=== PATIENT | male | born 1940 | race Caucasian/White ===

== ENCOUNTER 2019-10-03 14:03 | Inpatient (IN) | payer MEDICARE ==
[~2019-10-03] VITALS: Ht 182.9 cm; Wt 91.3 kg
[2019-10-03] MEDS ORDERED: MORPHINE 4 MG/ML 1ML VIAL/SYRINGE (J2270) IV ONE ×2 (14:30→15:15)
[2019-10-03] MEDS ORDERED: BOOSTRIX/ADACEL VACCINE (DIPHTH/PERTUSS/ACELL/TETANUS) 0.5ML SYR IM ONE (14:30)
[2019-10-03 15:11] LABS: BASO % 0.2 % (0.0-1.0); EOS % 0.6 % (0.0-3.0); HEMATOCRIT 40.1 % (42.0-52.0); HEMOGLOBIN 12.9 g/dl (13.5-17.5); LYMPH # 0.9 10^3/uL (1.5-5.0); LYMPH % 13.7 % (24.0-44.0); MEAN CORPUSCULAR HEMOGLOBIN 24.8 pg (27.0-33.0); MEAN CORPUSCULAR HGB CONC 32.2 g/dl (32.0-36.5); MONO # 0.3 10^3/uL (0.0-0.8); MONO % 4.9 % (0.0-5.0); NEUTROPHILS # 5.2 10^3/uL (1.5-8.5); NEUTROPHILS % 80.3 % (36.0-66.0); PLATELET COUNT, AUTOMATED 182 10^3/uL (150-450); RED BLOOD COUNT 5.21 10^6/uL (4.30-6.10); WHITE BLOOD COUNT 6.5 10^3/uL (4.0-10.0)
[2019-10-03 15:21] LABS: INR 1.01
[2019-10-03 15:22] LABS: PARTIAL THROMBOPLASTIN TIME 27.9 SECONDS (25.0-38.4)
[2019-10-03] MEDS ORDERED: FINA5TAB2 PO (15:32)
[2019-10-03] MEDS ORDERED: NS 1,000 ML IV SCH ×2 (15:36→16:15)
[2019-10-03] MEDS ORDERED: FLOM0.4C39 PO (15:48)
[2019-10-03] MEDS ORDERED: BIOT1TAB PO (15:48)
[2019-10-03 15:54] LABS: ALBUMIN 3.6 GM/DL (3.2-5.2); ALT/SGPT 23 U/L (12-78); BILIRUBIN,DIRECT 0.2 MG/DL (0.0-0.2); BILIRUBIN,TOTAL 0.6 MG/DL (0.2-1.0); BLOOD UREA NITROGEN 28 MG/DL (7-18); CALCIUM LEVEL 8.7 MG/DL (8.8-10.2); CARBON DIOXIDE LEVEL 25 MEQ/L (21-32); CHLORIDE LEVEL 108 MEQ/L (98-107); CK-MB VALUE MASS 6.5 NG/ML (<3.6); CPK CREATINE PHOSPHOKINASE 370 U/L (39-308); CREATININE FOR GFR 1.12 MG/DL (0.70-1.30); FREE T4 1.17 NG/DL (0.76-1.46); GLOMERULAR FILTRATION RATE > 60.0 (>42); GLUCOSE, FASTING 88 MG/DL (70-100); MB/CK RELATIVE INDEX 1.76 (< OR =4); POTASSIUM SERUM 4.4 MEQ/L (3.5-5.1); SODIUM LEVEL 141 MEQ/L (136-145); TOTAL PROTEIN 6.7 GM/DL (6.4-8.2); TROPONIN I < 0.02 NG/ML (< 0.10)
--- NOTE | 2019-10-03 16:38 | HPEPDOC ---
[facility] Medical History & Physical Date of Admission October 03, 2019 Date of Service: October 03, 2019 History and Physical CHIEF COMPLAINT: mechanical fall, left hip pain HISTORY OF PRESENT ILLNESS: 78 yo male from [place], [place] who travelled to [place] for a fishing trip. Patient had a mechanical fall, slipping on a rock. Denied any head trauma or syncope. Denied any previous history of falls. Denies any chest pain, shortness of breath, headaches, abdominal pain, N/V/D. Only PMHx of BPH, follows with his PCP annually. States he is extremely active, at least 45 minutes daily vigorous exercise. States he s mokes one cigar daily for as long as he can remember. He had a history of HTN, then resolved with lifestyle changes over four years ago. States he is aware of his pulmonary nodule, which has been monitored for several years. PAST MEDICAL HISTORY: #BPH #possible glucose intolerance #pulmonary nodule ALLERGIES: Please see below. REVIEW OF SYSTEMS: Negative except as per HPI HOME MEDICATIONS: Please see below. PHYSICAL EXAMINATION: VITAL SIGNS: See below LABORATORY DATA: See below. MICROBIOLOGY: Please see below. ASSESSMENT: 78 yo male with PMHx BPH, pulmonary nodule and possible glucose intolerance, presented for mechanical fall with left hip pain, admitted for left hip fracture. #left hip Fx - ortho c/s - medically optimized - NPO/IV fluids - pain control #BPH - continue home meds #pulmonary nodule - patient aware - obtains annual imaging - outpatient surveillance #nicotine abuse - counselling provided at bedside - not interested in nicotine replacement therapy #sinus chandni/RBBB - patient states is aware - present for several years #DVT prophylaxis - mechanical for now Dispo: Patient states he is extremely active, riding an exercise bike for 45 minutes daily, easily attaining greater than 4 METS. Denies ever experiencing chest pains or shortness of breath. ECG with no acute findings. Labs with no acute findings. He scores 0 using the Revised Cardiac Risk Index, indicating Class 1 risk, or 3.9% of serious adverse outcome. As such, patient is medically optimized for planned orthopedic surgical intervention. Vital Signs Vital Signs Date Time Temp Pulse Resp B/P (MAP) Pulse Ox O2 Delivery O2 Flow Rate FiO2 10/03/19 16:07 54 18 137/70 (92) 99 10/03/19 15:37 Room Air 10/03/19 14:28 97.7 Laboratory Data Labs 24H Laboratory Tests 2 10/03/19 14:59: Immature Granulocyte % (Auto) 0.3, Neutrophils (%) (Auto) 80.3H, Lymphocytes (%) (Auto) 13.7L, Monocytes (%) (Auto) 4.9, Eosinophils (%) (Auto) 0.6, Basophils (%) (Auto) 0.2, Neutrophils # (Auto) 5.2, Lymphocytes # (Auto) 0.9L, Monocytes # (Auto) 0.3, Eosinophils # (Auto) 0.0, Basophils # (Auto) 0.0, Nucleated Red Blood Cells % (auto) 0.0, Prothrombin Time 13.0, Prothromb Time International Ratio 1.01, Activated Partial Thromboplast Time 27.9, Anion Gap 8, Glomerular Filtration Rate > 60.0, Calcium Level 8.7L, Total Bilirubin 0.6, Direct Bilirubin 0.2, Aspartate Amino Transf (AST/SGOT) 27, Alanine Aminotransferase (ALT/SGPT) 23, Alkaline Phosphatase 69, Total Creatine Kinase 370H, Creatine Kinase MB 6.5H, Creatine Kinase MB Relative Index 1.76, Troponin I < 0.02, Total Protein 6.7, Albumin 3.6, Albumin/Globulin Ratio 1.2, Thyroid Stimulating Hormone (TSH) 1.600, Free Thyroxine 1.17 CBC/BMP Laboratory Tests 10/03/19 14:59 Microbiology Microbiology 10/03/19 Coronavirus COVID-19 PCR ([facility]), Received Pending Home Medications Scheduled Biotin (Biotin) 10 Mg Tablet, 10 MG PO DAILY Finasteride (Finasteride) 5 Mg Tablet, 5 MG PO DAILY Tamsulosin HCl (Flomax) 0.4 Mg Capsule, 0.4 MG PO DAILY Allergies Coded Allergies: No Known Allergies (Unverified , 10/03/19) A-FIB/CHADSVASC A-FIB History Current/History of A-Fib/PAF?: No MERARY TANNER MD October 03, 2019 16:38
[2019-10-03] MEDS ORDERED: MORPHINE 2 MG/ML 1ML VIAL (J2270) IV ONE (17:00)
[2019-10-03 17:15] VITALS: BP 120/74
[2019-10-03] MEDS ORDERED: MORPHINE 2 MG/ML 1ML VIAL (J2270) IV PRN ×2 (18:15→23:45)
[2019-10-03] MEDS ORDERED: LIDOCAINE 2% 100MG/5ML SDV (FOR ANES.) As Ordered ONE (19:10)
[2019-10-03] MEDS ORDERED: KETAMINE HCL 200 MG/20 ML VIAL As Ordered ONE (19:10)
[2019-10-03] MEDS ORDERED: ONDANSETRON 4MG/2ML VIAL As Ordered ONE (19:10)
[2019-10-03] MEDS ORDERED: fentaNYL 100 MCG/2 ML INJECTION (J3010) As Ordered ONE ×2 (19:10→20:55)
[2019-10-03] MEDS ORDERED: propofoL 200 MG/20 ML VIAL As Ordered ONE (19:10)
[2019-10-03] MEDS ORDERED: MIDAZOLAM INJ 2MG/2ML VIAL (J2250 PER 1MG) As Ordered ONE (19:10)
[2019-10-03] MEDS ORDERED: ceFAZolin 1GM VIAL (J0690 PER 500MG) As Ordered ONE (19:26)
[2019-10-03] MEDS ORDERED: EPINEPHrine INJ 1 MG/ML 1ML AMP As Ordered ONE (19:26)
[2019-10-03] MEDS ORDERED: ceFAZolin 2 GM/D5W 50 ML IV BAG (J0690 PER 500MG) As Ordered ONE ×2 (19:51→20:49)
[2019-10-03] MEDS ORDERED: ROCURONIUM BROMIDE 50 MG/5 ML VIAL As Ordered ONE (20:20)
[2019-10-03] MEDS ORDERED: dexameTHASONE 4 MG/ML 1ML VIAL (J1100 PER 1MG) As Ordered ONE (20:26)
[2019-10-03] MEDS ORDERED: SUCCINYLCHOLINE 100 MG/5 ML SYRINGE (J0330) As Ordered ONE (20:28)
[2019-10-03] MEDS ORDERED: PHENYLephrine HCL 500 MCG/5 ML (100MCG/ML) SYRINGE (J2370) As Ordered ONE (20:35)
[2019-10-03] MEDS ORDERED: TRANEXAMIC ACID 100 MG/ML 10ML VIAL As Ordered ONE (20:49)
[2019-10-03] MEDS ORDERED: ACETAMINOPHEN 1000MG 100ML IV BTL (OFIRMEV) (J0131 PER 10MG) As Ordered ONE (20:59)
[2019-10-03] MEDS ORDERED: SUGAMMADEX SODIUM 500 MG/5 ML VIAL (BRIDION) As Ordered ONE (21:03)
[2019-10-03] MEDS ORDERED: HYDROmorphone HCL 2 MG/ML 1ML VIAL (J1170) As Ordered ONE (21:40)
[2019-10-03] MEDS ORDERED: oxyCODONE 5MG TAB PO PRN (23:30)
[2019-10-03] MEDS ORDERED: LR 1,000 ML IV SCH ×2 (23:30→23:45)
[2019-10-03] MEDS ORDERED: fentaNYL 100 MCG/2 ML INJECTION (J3010) IV PRN (23:30)
[2019-10-03] MEDS ORDERED: ONDANSETRON 4MG/2ML VIAL IV PRN ×2 (23:30→23:45)
[2019-10-03] MEDS ORDERED: ACETAMINOPHEN TAB 650MG DOSE (2X325MG) PO PRN (23:45)
[2019-10-04] VITALS (11 sets, daily range): BP systolic 99–118; BP diastolic 52–71
[2019-10-04] MEDS: PERCOCET 5MG/325MG TAB PO PRN ×5 (02:35→22:08)
[2019-10-04 07:47] LABS: HEMATOCRIT 36.8 % (42.0-52.0); HEMOGLOBIN 11.9 g/dl (13.5-17.5); MEAN CORPUSCULAR HEMOGLOBIN 24.9 pg (27.0-33.0); MEAN CORPUSCULAR HGB CONC 32.3 g/dl (32.0-36.5); PLATELET COUNT, AUTOMATED 167 10^3/uL (150-450); RED BLOOD COUNT 4.78 10^6/uL (4.30-6.10); WHITE BLOOD COUNT 7.4 10^3/uL (4.0-10.0)
[2019-10-04 08:07] LABS: BLOOD UREA NITROGEN 20 MG/DL (7-18); CALCIUM LEVEL 8.4 MG/DL (8.8-10.2); CARBON DIOXIDE LEVEL 26 MEQ/L (21-32); CHLORIDE LEVEL 108 MEQ/L (98-107); CREATININE FOR GFR 1.04 MG/DL (0.70-1.30); GLOMERULAR FILTRATION RATE > 60.0 (>42); GLUCOSE, FASTING 140 MG/DL (70-100); POTASSIUM SERUM 4.3 MEQ/L (3.5-5.1); SODIUM LEVEL 142 MEQ/L (136-145)
--- NOTE | 2019-10-04 08:14 | REP ---
PELVIS AND LEFT HIP: AP view of the pelvis and AP and cross-table lateral views of the left hip are performed. There is a fracture of the left femoral neck with mild superior lateral displacement of the femur is noted. No other acute fracture or dislocation is seen. There are mild degenerative changes at the hip joints. There are mild degenerative changes of the lumbar spine. IMPRESSION: Left femoral neck fracture, which is mildly displaced. Electronically Signed by José Miguel Sow MD 10/04/2019 10:10 A
--- NOTE | 2019-10-04 08:15 | REP ---
CHEST, SINGLE VIEW: Single view of the chest is performed. I see no evidence of acute infiltrate but there may be a 2.5 cm nodule in the left upper lobe. Heart is not significantly enlarged. Mediastinal silhouette appears unremarkable. There are degenerative changes of the spine. IMPRESSION: Possible left upper lobe nodule, 2.5 cm in diameter. Recommend CT of the chest to further evaluate. Electronically Signed by José Miguel Sow MD 10/04/2019 10:10 A
[2019-10-04] MEDS: FINASTERIDE 5 MG TAB PO SCH (08:37)
[2019-10-04] MEDS: TAMSULOSIN 0.4 MG CAP PO SCH (08:38)
[2019-10-04] MEDS ORDERED: PREVNAR 13 VACCINE SYRINGE (CPT CODE:90670) IM ONE (09:00)
[2019-10-04] MEDS: MOM 30ML SUSPENSION UDC PO SCH ×3 (09:00→10:19)
[2019-10-04] MEDS: MIRALAX *UNIT DOSE* 17GM PACKET PO SCH (10:14)
[2019-10-04] MEDS: SENOKOT S TAB PO SCH ×2 (10:15→20:01)
--- NOTE | 2019-10-04 10:18 | REP ---
LEFT HIP: AP and cross-table lateral views of left hip are performed. There is placement of a metallic prosthesis in the proximal left femur, status post left femoral neck fracture. Osseous structures are intact and well aligned. Metallic skin beatris are seen laterally. Electronically Signed by José Miguel Sow MD 10/04/2019 11:16 A
--- NOTE | 2019-10-04 10:20 | REP ---
C-ARM VIEWS, LEFT HIP: Four C-arm views, left hip performed during placement of metallic prosthesis in the proximal left femur. Stem of the prosthesis is in the proximal left femur. 11 seconds fluoroscopy time utilized. Electronically Signed by José Miguel Sow MD 10/04/2019 11:16 A
--- NOTE | 2019-10-04 10:33 | IPNPDOC ---
Text Note Date of Service The patient was seen on 10/04/19. NOTE Subjective: Patient seen and examined at bedside. No medical complaints. In good spirits. Objective: General: NAD, lying comfortably in bed HEENT: NC/AT, EOMI ASSESSMENT: 78 yo male with PMHx BPH, pulmonary nodule and possible glucose intolerance, presented for mechanical fall with left hip pain, admitted for left hip fracture. #left hip Fx - POD #1 - follow up as per ortho - tolerating diet - pain control #BPH - continue home meds #pulmonary nodule - patient aware - obtains annual imaging - outpatient surveillance #nicotine abuse - counselling provided at bedside - not interested in nicotine replacement therapy #sinus chandni/RBBB - patient states is aware - present for several years #DVT prophylaxis - mechanical for now VS,Fishbone, I+O VS, Fishbone, I+O Laboratory Tests 10/03/19 14:59 10/04/19 07:23 Vital Signs Date Time Temp Pulse Resp B/P (MAP) Pulse Ox O2 Delivery O2 Flow Rate FiO2 10/04/19 07:30 18 10/04/19 05:10 98.1 50 106/60 (75) 97 Room Air 10/03/19 23:25 12 I&O- Last 24 Hours up to 6 AM 10/04/19 06:00 Intake Total 1935 ml Output Total 850 ml Balance 1085 ml MERARY TANNER MD October 04, 2019 10:33
[2019-10-04] MEDS: ceFAZolin SOD 2 GM in IV 1 EA IV SCH ×2 (11:22→17:51)
[2019-10-04] MEDS ORDERED: RIVAROXABAN 10 MG TAB (XARELTO) PO SCH (18:00)
[2019-10-04] MEDS: SLF 3 ML SYR IV SCH (18:46)
--- NOTE | 2019-10-04 19:45 | ECGEPIP ---
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
--- NOTE | 2019-10-04 20:15 | CR ---
DATE OF CONSULTATION: 10/03/2019 CHIEF COMPLAINT: Left femoral neck fracture. HISTORY OF PRESENT ILLNESS: 78-year-old man was fishing. Slipped getting out of the river. This was about 11 a.m. this morning. He has been nothing by mouth since that time. He fell directly on his left side with the inability to ambulate. I was consulted by the emergency room department physician at [facility]. He had no other pain, problems, preexisting hip pain or chest pain, shortness of breath or other injuries. PAST MEDICAL HISTORY: Includes BPH. Possible glucose intolerance. Pulmonary nodule. ALLERGIES: No known drug allergies. MEDICATIONS: - Biotin - finasteride - tamsulosin SOCIAL HISTORY: He is extremely active. He smokes a cigar everyday. He is traveling to [place] from [place] for a fishing trip. His 's name is Ariana. PHYSICAL EXAMINATION: Vital signs: Temperature 98.2. Blood pressure 120/74, pulse rate 63. Respiratory rate 20, 97% on room air. He is alert and oriented times three. Responds appropriately. He is in moderate discomfort to the left hip. No other pain or problems. Left hip is closed, held in slight flexion and external rotation. Normal sensation. Strong pedal pulses. He is able to wiggle his toes, dorsiflex and plantar flex his foot. Slightly diminished sensation through the foot but it is warm and strong dorsalis pedis and tibialis posterior pulses. Radiographs were obtained, AP and lateral left hip and pelvis and chest x-ray. Hip x-rays AP and lateral demonstrated a displaced femoral neck fracture. LABORATORIES: Reveals hemoglobin 12.9. Coagulation studies: PT 13, INR 1.01 and APTT 27.9. ASSESSMENT/PLAN: 78-year-old man has left femoral neck fracture. Discussed pros and cons, risks and benefits of nonsurgical versus surgical care. Surgery would involve a left hip hemiarthroplasty. Specific surgical risks include but are not limited to infection pain, stiffness, weakness, damage to blood vessels, nerves, neurovascular injury, damage to surrounding structures, component problems such as fracture instability or bone disassociation as well as wear on the acetabular side with a hemiarthroplasty calcar fracture, cement complications, Cement extravasation, blood clots, anesthetic complications, and other risks as well as need for further surgery. He wishes to go ahead, marked left lower extremity. He wishes to go ahead. Also consented for need for blood products and I explained the pros and cons and risks and benefits of that to him including but not limited to infection, fever, and allergic reaction. He will remain nothing by mouth. In addition due to the current coronavirus crisis there is unfortunately lack of rapid testing and as such we must proceed without rapid test as delayed testing would take 2-3 days. Plan to take precautions and treat the patient as if they were coronavirus positive.
[2019-10-05] VITALS: BP 96/52
[2019-10-05] MEDS: PERCOCET 5MG/325MG TAB PO PRN ×3 (04:06→15:38)
[2019-10-05] MEDS: ceFAZolin SOD 2 GM in IV 1 EA IV SCH (04:07)
[2019-10-05] MEDS: SLF 3 ML SYR IV SCH ×2 (05:08→14:00)
--- NOTE | 2019-10-05 07:45 | RO ---
DATE OF PROCEDURE: 10/03/2019 PREOPERATIVE DIAGNOSIS: Left femoral neck fracture. POSTOPERATIVE DIAGNOSIS: Left femoral neck fracture. PLANNED PROCEDURE: Left hip hemiarthroplasty. PROCEDURE PERFORMED: Left hip hemiarthroplasty (cemented). SURGEON: Dr. Teodoro Trinh [employer]: None. WO[employer]VING LATHE OPERATOR: Dr. Ragland ANESTHESIA: Failed spinal, converted to general anesthetic. OPERATIVE PREAMBLE: This 78-year-old man had a ground level fall. He sustained a displaced femoral neck fracture. We talked about the pros, cons, risks, and benefits of going ahead with surgery. I marked the left lower extremity and we proceeded to the operating theater. OPERATIVE REPORT: The patient was brought to the operating theater. They attempted to administer spinal anesthetic. This failed. They converted to a general anesthetic. He was placed on the operating table in a left lateral decubitus with the aid of a [place] hip positioner. Axillary roll was used. All bony prominences were padded appropriately. SCD used on the down leg. The limb was prepped and draped in the usual sterile fashion allowing over 3 minutes prep solution drying time. A preoperative time out was performed to confirm the site, the patient and surgery. I began by making a 6 inch incision centered over the lateral proximal aspect of the femur. I carried the dissection down through skin and subcutaneous tissue and achieved meticulous hemostasis. I incised the tensor fascia trina in the line of the skin incision. I sharply released the abductors off the greater trochanter. I made a T-shaped capsulotomy. I tagged each limb with a #1 Vicryl suture. I did excise a small leaflet of the capsule given that it was quite hypertrophic. I made my initial neck cut approximately one fingerbreadths above the level of the lesser trochanter based on preoperative templating and about 15 mm below the level of the fracture. I then inserted the corkscrew device and I removed the head from the acetabulum. The acetabulum cartilage was reasonable with good coverage and only grade 1 to 2 changes. The acetabulum was thoroughly irrigated. The head was sized to 54 mm. I then used the box osteotome followed by sequential canal entry devices and reamers and broaches to broach up to a size 7. This was trialed with a -3 mm size 7 broach with 56 mm head. This was stable and solid in all directions. No signs of levering out or impingement. Shuck test was normal. Full internal rotation with flexion and full external rotation and extension. No obvious instability. The trial components were removed. The femoral canal was thoroughly prepped using pulse lavage as well as the acetabulum using pulse lavage. Epinephrine soaked gauze was then inserted into the canal for bleeding hemostasis. A size 4 distal cement restrictor was placed after the appropriate hemostasis was achieved and the epinephrine soaked gauze removed. Cement was mixed and allowed to become only slightly firm in its consistency. I then cemented the canal. I used third-generation cement mixing techniques including vacuum mixing as well as pressurization in the canal. I inserted the size 7 [place] femoral stem in appropriate version. I allowed the cement to fully harden at least 14 minutes. I thoroughly cleaned the trunnion. The size -3 mm tapered spacer with 54 mm head was then impacted into place. It was reduced and again trialed and found to be stable in all directions with normal leg lengths and normal shuck test. Intraoperative x-ray was taken of the entire length of the femur as this was not done preoperatively. I also took radiographs AP of the femur to confirm the proper broach size which appeared appropriate. I asked for these to be saved onto the radiographic system. I again thoroughly irrigated. The capsule was closed with interrupted #1 Vicryl sutures. Abductors were repaired through bony tunnels with #1 Vicryl suture as well through the greater trochanter. Stratafix suture was used in a running locking fashion to repair the tensor fascia trina. Subcutaneous tissues was closed with interrupted #2-0 Vicryl sutures and the skin with beatris. The skin was cleaned with wet to dry dressing followed by application of an occlusive dressing and padded with ABD pads and cloth tape. The patient was extubated and kept in the room for 15 minutes after extubation due to Coronavirus concerns currently. He was transferred off the operating table and taken to the postanesthetic care unit in stable condition. All sponge, needle, and instrument counts were correct. No complications. Estimated blood loss 350 mL. PLAN: The patient will be weightbearing as tolerated. VTE prophylaxis with rivaroxaban 10 mg by mouth once daily for 35 days after surgery starting 24 hours after the case completion. He will follow up in the office in 2 weeks' time. We will obtain an AP x-ray in postoperative recovery.
[2019-10-05 08:25] LABS: BASO % 0.1 % (0.0-1.0); EOS # 0.1 10^3/uL (0.0-0.5); EOS % 1.1 % (0.0-3.0); HEMATOCRIT 32.8 % (42.0-52.0); HEMOGLOBIN 10.3 g/dl (13.5-17.5); LYMPH # 1.3 10^3/uL (1.5-5.0); LYMPH % 15.2 % (24.0-44.0); MEAN CORPUSCULAR HEMOGLOBIN 24.1 pg (27.0-33.0); MEAN CORPUSCULAR HGB CONC 31.4 g/dl (32.0-36.5); MEAN CORPUSCULAR VOLUME 76.8 fl (80.0-96.0); MONO # 0.7 10^3/uL (0.0-0.8); MONO % 8.3 % (0.0-5.0); NEUTROPHILS # 6.3 10^3/uL (1.5-8.5); NEUTROPHILS % 74.9 % (36.0-66.0); PLATELET COUNT, AUTOMATED 136 10^3/uL (150-450); RED BLOOD COUNT 4.27 10^6/uL (4.30-6.10); WHITE BLOOD COUNT 8.4 10^3/uL (4.0-10.0)
[2019-10-05 08:49] LABS: BLOOD UREA NITROGEN 19 MG/DL (7-18); CALCIUM LEVEL 8.1 MG/DL (8.8-10.2); CARBON DIOXIDE LEVEL 29 MEQ/L (21-32); CHLORIDE LEVEL 107 MEQ/L (98-107); CREATININE FOR GFR 1.07 MG/DL (0.70-1.30); GLOMERULAR FILTRATION RATE > 60.0 (>42); GLUCOSE, FASTING 99 MG/DL (70-100); SODIUM LEVEL 142 MEQ/L (136-145)
[2019-10-05] MEDS ORDERED: HYDROCORTISONE 1% CREAM 30 GM TOP PRN (09:00)
[2019-10-05] MEDS: MIRALAX *UNIT DOSE* 17GM PACKET PO SCH (09:00)
[2019-10-05] MEDS: SENOKOT S TAB PO SCH (09:02)
[2019-10-05] MEDS: TAMSULOSIN 0.4 MG CAP PO SCH (09:02)
[2019-10-05] MEDS: FINASTERIDE 5 MG TAB PO SCH (09:48)
[2019-10-05 12:00] VITALS: BP 124/60
[2019-10-05] MEDS ORDERED: XARE10TA PO (14:58)
--- NOTE | 2019-10-06 06:01 | DS.PDOC ---
Discharge Summary General Date of Admission October 03, 2019 at 16:39 Date of Discharge 10/05/19 Specialist/Consultants [facility], dr arguello Discharge Summary PROCEDURES PERFORMED DURING STAY: left hip hemiarthroplasty (cemented) ADMITTING DIAGNOSES: 1. left femoral neck fracture Secondary DIAGNOSES: 1. BPH 2. pulmonary nodule 3. sinus chandni/RBBB COMPLICATIONS/CHIEF COMPLAINT: Hip Fracture. Hospital Course: 78 yo male presented for mechanical fall with left hip pain. Im aging revealed left femoral neck fracture. Patient medically optimized for surgery, and under left hip negrita-arthroplasty (cemented). Patient was discharged to ARU for further rehab. Hospital stay otherwise unremarkable. COVID negative. DISCHARGE MEDICATIONS: Please see below. ALLERGIES: Please see below. PHYSICAL EXAMINATION ON DISCHARGE: VITAL SIGNS: Please see below. GENERAL: NAD HEENT: NC/AT, EOMI LABORATORY DATA: Please see below. ACTIVITY: [As tolerated]. DIET: regular DISPOSITION: 62 D/T Rehab Facility. DISCHARGE INSTRUCTIONS: 1. PCP on discharge, 3-5 days 2. orthopedics as directed 3. f/u pulmonary lung nodule as directed with PCP/pulmonology DISCHARGE CONDITION: [Stable]. TIME SPENT ON DISCHARGE: 35 minutes. Vital Signs/I&Os Vital Signs Date Time Temp Pulse Resp B/P (MAP) Pulse Ox O2 Delivery O2 Flow Rate FiO2 10/05/19 15:38 18 Room Air 10/05/19 12:00 99.5 70 124/60 (81) 94 10/03/19 23:25 12 I&O- Last 24 Hours up to 6 AM 10/06/19 06:00 Intake Total 240 ml Output Total 450 ml Balance -210 ml Laboratory Data Labs 24H Laboratory Tests 2 10/05/19 07:50: Immature Granulocyte % (Auto) 0.4, Neutrophils (%) (Auto) 74.9H, Lymphocytes (%) (Auto) 15.2L, Monocytes (%) (Auto) 8.3H, Eosinophils (%) (Auto) 1.1, Basophils (%) (Auto) 0.1, Neutrophils # (Auto) 6.3, Lymphocytes # (Auto) 1.3L, Monocytes # (Auto) 0.7, Eosinophils # (Auto) 0.1, Basophils # (Auto) 0.0, Nucleated Red Blood Cells % (auto) 0.0, Anion Gap 6L, Glomerular Filtration Rate > 60.0, Calcium Level 8.1L CBC/BMP Laboratory Tests 10/05/19 07:50 Microbiology Microbiology 10/03/19 Coronavirus COVID-19 PCR ([facility]) - Final, Complete Discharge Medications Scheduled Finasteride (Finasteride) 5 Mg Tablet, 5 MG PO DAILY, (Reported) Rivaroxaban (Xarelto) 10 Mg Tablet, 10 MG PO DAILY@18 Tamsulosin HCl (Flomax) 0.4 Mg Capsule, 0.4 MG PO DAILY, (Reported) Allergies Coded Allergies: No Known Allergies (Unverified , 10/03/19) MERARY TANNER MD Oct 06, 2019 06:01
--- NOTE | 2019-10-06 06:49 | IPN ---
DATE: 10/05/2019 CHIEF COMPLAINT: Postoperative day #2 left hip hemiarthroplasty. HISTORY OF PRESENT ILLNESS: 78-year-old man seen today on postoperative day #2. He is doing well. Mobilized to the washroom. He has a little bit of hip pain when he turns over in bed. Otherwise, no concerns. He had a slight temperature last night to 99.2, and he was given incentive spirometer. No other symptoms. No chest pain, shortness of breath. PHYSICAL EXAM: This is a well-appearing 78-year-old man. Alert and oriented times three. Incision is clean and dry. Bulky dressing was taken down. Normal sensation and motor function to the foot. Foot is warm and well perfused. ASSESSMENT/PLAN: This 78-year-old man likely has a fever due to postoperative day #1 atelectasis. We ordered for incentive spirometry. In addition to this, the hospitalist is actively managing his care. 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 We will try some hydrocortisone cream for this.
--- NOTE | 2019-10-06 09:41 | IPN ---
DATE: 10/04/2019 CHIEF COMPLAINT: Postoperative day #1 left hip cemented hemiarthroplasty. HISTORY OF PRESENT ILLNESS: This 78-year-old man underwent cemented hemiarthroplasty for his left hip femoral neck fracture last evening. This was done under general anesthetic. Feels like he is still a little bit groggy from the medications, but other than that he slept well. He is eating well. No nausea or vomiting. He feels like there is still a little bit of incisional tenderness but no pain like it was before. He is wondering how he is going to be able get home as he is from [place] and it is [place] 300[address] He is not a cycler especially on a stationary bike. PHYSICAL EXAMINATION: He is a well-appearing 78-year-old man. Vital signs are stable. He is alert and times three. He is pleasant and easy to interact with. Bulky dressing in situ. No strikethrough. Normal sensation . Motor and sensory reflex. Normal sensation and motor function through the foot. Foot is warm and well perfused. Good pedal pulses. Radiograph postoperatively was reviewed, AP, lateral and oblique of the left hip. . bone appears well positioned. There is an area of perhaps a calcified bony fragment or less likely cement just superior to the greater trochanter near the femoral neck on the AP radiograph. ASSESSMENT AND PLAN: A 78-year-old man who is postoperative day #1 from a left hip hemiarthroplasty for femoral neck fracture. Will mobilize, weightbearing as tolerated. Venous thromboembolism (VTE) prophylaxis with rivaroxaban 10 mg by mouth once daily for 35 days. He is being managed by the hospitalist team and to their care as well.
== END 2019-10-05 16:00 | DRG 470 ==
LOC: M ED 14:03 → M ED INP 16:39 → ENRESERV 16:49 → M 4MAIN 17:15
PROVIDERS: ADMIT Internal Medicine; ATTEND Internal Medicine
PROC: 0SRS0J9 Replacement of Left Hip Joint, Femoral Surface with Synthetic Substitute, Cemented, Open Approach (ICD-10-PCS; principal; 2019-10-03 19:01)
DX: S72.002A Fracture of unspecified part of neck of left femur, initial encounter for closed fracture (principal); J98.11 Atelectasis; W18.09XA Striking against other object with subsequent fall, initial encounter; Y93.19 Activity, other involving water and watercraft; Y92.828 Other wilderness area as the place of occurrence of the external cause; N40.0 Benign prostatic hyperplasia without lower urinary tract symptoms; R91.1 Solitary pulmonary nodule; I45.10 Unspecified right bundle-branch block; E74.39 Other disorders of intestinal carbohydrate absorption; F17.290 Nicotine dependence, other tobacco product, uncomplicated; Z79.899 Other long term (current) drug therapy

== ENCOUNTER 2019-10-05 13:30 | Inpatient (IN) | payer MEDICARE ==
[~2019-10-05] VITALS: Ht 182.9 cm; Wt 94.5 kg
[~2019-10-05 13:30] MED LIST: BIOT1TAB PO; FINA5TAB2 PO; FLOM0.4C39 PO
[2019-10-05] MEDS ORDERED: XARE10TA PO (14:58)
[2019-10-05 16:00] VITALS: BP 126/57
[2019-10-05] MEDS ORDERED: BISACODYL 10 MG SUPP PR PRN (16:00)
[2019-10-05] MEDS ORDERED: MOM 30ML SUSPENSION UDC PO PRN (16:00)
[2019-10-05] MEDS: REMEDY PHYTOPLEX Z-GUARD PASTE 113GM TUBE (FROM STOREROOM PRODUCT) TOP SCH ×2 (16:00→21:00)
[2019-10-05] MEDS: RIVAROXABAN 10 MG TAB (XARELTO) PO SCH (16:46)
[2019-10-05] MEDS: ACETAMINOPHEN 500 MG TAB PO SCH ×2 (16:49→21:25)
[2019-10-05 20:00] VITALS: BP 127/73
[2019-10-05] MEDS: SENNA 8.6 MG TAB (SENOKOT) PO SCH (21:26)
[2019-10-05] MEDS: DOCUSATE SODIUM 100 MG CAP PO SCH (21:26)
[2019-10-06] MEDS: ACETAMINOPHEN 500 MG TAB PO SCH ×3 (05:13→21:12)
[2019-10-06 06:00] VITALS: BP 116/62
[2019-10-06 06:56] LABS: BASO % 0.3 % (0.0-1.0); EOS # 0.1 10^3/uL (0.0-0.5); EOS % 1.7 % (0.0-3.0); HEMATOCRIT 33.9 % (42.0-52.0); HEMOGLOBIN 10.9 g/dl (13.5-17.5); LYMPH # 1.1 10^3/uL (1.5-5.0); LYMPH % 16.2 % (24.0-44.0); MEAN CORPUSCULAR HEMOGLOBIN 24.4 pg (27.0-33.0); MEAN CORPUSCULAR HGB CONC 32.2 g/dl (32.0-36.5); MONO # 0.5 10^3/uL (0.0-0.8); NEUTROPHILS # 4.9 10^3/uL (1.5-8.5); NEUTROPHILS % 73.3 % (36.0-66.0); PLATELET COUNT, AUTOMATED 159 10^3/uL (150-450); RED BLOOD COUNT 4.46 10^6/uL (4.30-6.10); WHITE BLOOD COUNT 6.7 10^3/uL (4.0-10.0)
[2019-10-06 07:19] LABS: ALBUMIN 2.9 GM/DL (3.2-5.2); ALT/SGPT 20 U/L (12-78); BILIRUBIN,TOTAL 0.8 MG/DL (0.2-1.0); BLOOD UREA NITROGEN 18 MG/DL (7-18); CALCIUM LEVEL 8.2 MG/DL (8.8-10.2); CARBON DIOXIDE LEVEL 26 MEQ/L (21-32); CHLORIDE LEVEL 107 MEQ/L (98-107); CREATININE FOR GFR 0.99 MG/DL (0.70-1.30); GLOMERULAR FILTRATION RATE > 60.0 (>42); GLUCOSE, FASTING 107 MG/DL (70-100); POTASSIUM SERUM 3.9 MEQ/L (3.5-5.1); SODIUM LEVEL 137 MEQ/L (136-145)
[2019-10-06] MEDS: DOCUSATE SODIUM 100 MG CAP PO SCH ×2 (07:40→20:27)
[2019-10-06] MEDS: TAMSULOSIN 0.4 MG CAP PO SCH (07:40)
[2019-10-06] MEDS: FINASTERIDE 5 MG TAB PO SCH (07:41)
[2019-10-06] MEDS: REMEDY PHYTOPLEX Z-GUARD PASTE 113GM TUBE (FROM STOREROOM PRODUCT) TOP SCH ×3 (07:44→20:28)
--- NOTE | 2019-10-06 10:53 | HPEPDOC ---
Shipsmith Note DATE OF ADMISSION: 10/05/19 DATE OF SERVICE: 10/06/19 TIME OF ADMISSION: Please refer to physician's admission order. SOURCE OF ADMISSION INFORMATION: [facility] record and patient CHIEF COMPLAINT: left hip fracture HISTORY OF PRESENT ILLNESS: 78M pmh BPH, smoker, sinus bradycardia who fell while on a fishing trip and presented to [facility] ED on 10-03-19 complaining of pain and difficulty walking. Hip X-rays showed, Left femoral neck fracture, which is mildly displaced. He was evaluated by orthopedics and underwent a left hip hemiarthroplasty on 10/03/19 without complication and was made WBAT. He developed mild post-op anemia and had difficulty with pain control. He was then evaluated by therapy, found to have deficits in mobility and ADLs and deemed medically appropriate for discharge to ARU on 10/06/19. REVIEW OF SYSTEMS: The following is a completed review of systems and has been reviewed. Review of systems otherwise unremarkable. PAIN: Patient self reports left hip pain EYES: No recent vision changes EARS, NOSE, & THROAT: +sinus congestion CARDIOVASCULAR: Denies chest pain or palpitations PULMONARY: Denies shortness of breath GASTROINTESTINAL: + constipation GENITOURINARY: denies dysuria MUSCULOSKELETAL: LLE weakness NEUROLOGICAL:denies paresthesias HEMATOLOGICAL: denies easy bruising SKIN: left hip incision PSYCHIATRIC: Unremarkable All other review of systems found to be negative. PAST MEDICAL HISTORY: as per HPI PAST SURGICAL HISTORY: as per HPI ALLERGIES: Please see below. MEDICATIONS: Please see below. SOCIAL HISTORY: +smoker, no etoh/illicit drugs DIET: regular PHYSICAL EXAMINATION: VITAL SIGNS: Please see below. GENERAL: Pleasant and cooperative. No acute distress. HEENT: PERRL. Extraocular movements intact. Clear conjunctiva CARDIOVASCULAR: Regular rate and rhythm. No murmurs, rubs, or gallops LUNGS: Clear to auscultation bilaterally. No wheezes. No rhonchi ABDOMEN: Soft, nontender, nondistended. Positive bowel sounds. Normal active bowel sounds NEUROLOGICAL: Alert and oriented times three. Cranial nerves II through XII grossly intact. Sensation grossly intact in all 4limbs EXTREMITIES: 5\5 strength bilateral upper extremities. 5\5 strength right lower extremity. 5/5 strength in left lower extremity ankle DF/EHL (limited due to recent surgery) SKIN: no sacral erythema, left hip incision c/d/i with scant sanguinous drainage LABORATORY DATA: Please see below. IMAGING: Imaging documentation personally reviewed by record FUNCTIONAL STATUS: Premorbid: Independent with all activities of daily life as well as mobility On Admission: Min-Max assist for functional transfers, able to ambulate 15 feet contact guard-min assist, total assist lower body dressing GOALS: Mod-I community distance with RW, stairs, functional transfers, dressing, bathing, toileting ASSESSMENT:78-year-old M with past medical history of BPH who presents status post fall with left femur fracture PLAN: 1. Rehab- PT/OT advance gait and ADLs, strengthen/stretch/maintain ROM all 4limbs 2. Cardiac: hx of sinus bradycardia, patient reports being very active, monitor 3. Resp: patient current smoker with CXR showing pulmonary nodule, he follows with his PCP and receive annual screening -Duonebs prn -encourage incentive spirometry, and monitor for infection -will add zyrtec, flonase, and nasal saline drops for sinus congestion 4. Ortho: s/p fall with left hip fracture and hemiarthroplasty, post-lat hip precautions, WBAT, ortho consulted 5. GI ppx: Protonix 6. DVT ppx: Xarelto and TEDs 7. Pain: Tylenol and oxycodone, ice 8. : hx of BPH c/u Proscar and Flomax, monitor PVRs 9. Heme: psot-op anemia due to blood loss, trend and consider transfusion if Hgb <8 10. Dispo: TBD POST ADMISSION PHYSICIAN EVALUATION: Medical and functional status: Description of medical status, medical assessment: As above. Rehabilitation diagnosis and current and prior cold morbid medical conditions as above. Risk of complications and plans to mitigate them as above. Description of functional status current status is as above. Prior status as above. Status compared to preadmission: There are no clinically significant differences between the patient's current status and the information described on the preadmission screening document. Treatment plan anticipated: Treatment plan is as described above. Required disciplines including physical therapy, occupational therapy, others as noted above. Intensity of services: 3 hours a day, 6 days a week. Special considerations: There are no specific special or safety considerations that would likely preclude immediate implementation of an intensive rehabilitation program or subsequently influence the plan of care. ATTESTATION: Considering all the information above, it is my best judgment that this patient requires intensive rehabilitation therapy as described above and an inpatient hospital environment due to the complexity of nursing, medical, and rehabilitation needs required by the patient. Furthermore, this patient can reasonably be expected to participate in an benefit from an inpatient rehabilitation stay with an interdisciplinary team approach to the delivery of rehabilitation care under the direction and supervision of rehabilitation physician. PROGNOSIS: good ESTIMATED LENGTH OF STAY:8-10 days. PROJECTED DISCHARGE DESTINATION: Home with family support and any durable medical equipment required to increase functional safety and mobility. TIME SPENT COUNSELING AND COORDINATING INITIAL CARE: Greater than 70 minutes. Vital Signs Vital Sign - Last 24 Hours 10/05/19 10/05/19 10/06/19 16:00 20:00 06:00 Temp 100.0 99.6 98.2 Pulse 72 76 70 Resp 18 17 18 B/P (MAP) 126/57 (80) 127/73 (91) 116/62 (80) Pulse Ox 100 96 92 O2 Delivery Room Air Room Air Room Air Laboratory Data CBC/BMP Laboratory Tests 10/06/19 06:30 Labs 24H Laboratory Tests 2 10/06/19 06:30: Immature Granulocyte % (Auto) 0.5, Neutrophils (%) (Auto) 73.3H, Lymphocytes (%) (Auto) 16.2L, Monocytes (%) (Auto) 8.0H, Eosinophils (%) (Auto) 1.7, Basophils (%) (Auto) 0.3, Neutrophils # (Auto) 4.9, Lymphocytes # (Auto) 1.1L, Monocytes # (Auto) 0.5, Eosinophils # (Auto) 0.1, Basophils # (Auto) 0.0, Nucleated Red Blood Cells % (auto) 0.0, Anion Gap 4L, Glomerular Filtration Rate > 60.0, Calcium Level 8.2L, Total Bilirubin 0.8, Aspartate Amino Transf (AST/SGOT) 26, A lanine Aminotransferase (ALT/SGPT) 20, Alkaline Phosphatase 62, Total Protein 6.0L, Albumin 2.9L, Albumin/Globulin Ratio 0.9 Home Medications Scheduled Finasteride (Finasteride) 5 Mg Tablet, 5 MG PO DAILY, (Reported) Rivaroxaban (Xarelto) 10 Mg Tablet, 10 MG PO DAILY@18 Tamsulosin HCl (Flomax) 0.4 Mg Capsule, 0.4 MG PO DAILY, (Reported) Allergies Coded Allergies: No Known Allergies (Unverified , 10/03/19) A-FIB/CHADSVASC A-FIB History Current/History of A-Fib/PAF?: No TYLER HOROWITZ MD Oct 06, 2019 10:53
[2019-10-06] MEDS: oxyCODONE 5MG TAB PO PRN ×2 (11:13→21:13)
[2019-10-06 14:21] VITALS: BP 145/76
[2019-10-06] MEDS: RIVAROXABAN 10 MG TAB (XARELTO) PO SCH (17:36)
[2019-10-06 20:00] VITALS: BP 135/72
[2019-10-06] MEDS: FLUTICASONE PROP 0.05% NASAL SPRAY 16 GM (FLONASE) NARES SCH (20:27)
[2019-10-06] MEDS: CETIRIZINE (ZyrTEC) 10 MG TAB PO SCH (20:27)
[2019-10-06] MEDS: SODIUM CHLORIDE NASAL 0.65% SPRAY BTL (OCEAN) SCH (20:27)
[2019-10-06] MEDS: SENNA 8.6 MG TAB (SENOKOT) PO SCH (20:27)
[2019-10-07] MEDS: ACETAMINOPHEN 500 MG TAB PO SCH ×3 (05:36→20:24)
[2019-10-07 06:00] VITALS: BP 131/71
[2019-10-07 08:11] LABS: BASO % 0.4 % (0.0-1.0); EOS # 0.2 10^3/uL (0.0-0.5); EOS % 4.3 % (0.0-3.0); HEMATOCRIT 29.3 % (42.0-52.0); HEMOGLOBIN 9.7 g/dl (13.5-17.5); LYMPH # 1.2 10^3/uL (1.5-5.0); LYMPH % 23.9 % (24.0-44.0); MEAN CORPUSCULAR HEMOGLOBIN 25.1 pg (27.0-33.0); MEAN CORPUSCULAR HGB CONC 33.1 g/dl (32.0-36.5); MEAN CORPUSCULAR VOLUME 75.9 fl (80.0-96.0); MONO # 0.5 10^3/uL (0.0-0.8); MONO % 9.2 % (0.0-5.0); NEUTROPHILS # 3.2 10^3/uL (1.5-8.5); PLATELET COUNT, AUTOMATED 150 10^3/uL (150-450); RED BLOOD COUNT 3.86 10^6/uL (4.30-6.10); WHITE BLOOD COUNT 5.1 10^3/uL (4.0-10.0)
[2019-10-07 08:30] LABS: BLOOD UREA NITROGEN 20 MG/DL (7-18); CALCIUM LEVEL 7.9 MG/DL (8.8-10.2); CARBON DIOXIDE LEVEL 28 MEQ/L (21-32); CHLORIDE LEVEL 108 MEQ/L (98-107); CREATININE FOR GFR 0.91 MG/DL (0.70-1.30); GLOMERULAR FILTRATION RATE > 60.0 (>42); GLUCOSE, FASTING 95 MG/DL (70-100); POTASSIUM SERUM 3.7 MEQ/L (3.5-5.1); SODIUM LEVEL 142 MEQ/L (136-145)
[2019-10-07] MEDS: TAMSULOSIN 0.4 MG CAP PO SCH (08:56)
[2019-10-07] MEDS: FINASTERIDE 5 MG TAB PO SCH (08:56)
[2019-10-07] MEDS: FLUTICASONE PROP 0.05% NASAL SPRAY 16 GM (FLONASE) NARES SCH ×2 (08:56→20:24)
[2019-10-07] MEDS: REMEDY PHYTOPLEX Z-GUARD PASTE 113GM TUBE (FROM STOREROOM PRODUCT) TOP SCH ×3 (08:56→20:28)
[2019-10-07] MEDS: DOCUSATE SODIUM 100 MG CAP PO SCH ×2 (08:56→20:24)
[2019-10-07] MEDS: SODIUM CHLORIDE NASAL 0.65% SPRAY BTL (OCEAN) SCH ×3 (08:56→20:24)
[2019-10-07] MEDS: oxyCODONE 5MG TAB PO PRN (11:03)
[2019-10-07 14:00] VITALS: BP 129/80
--- NOTE | 2019-10-07 14:11 | IPNPDOC ---
PM&R Progress Note DATE OF SERVICE: Oct 07, 2019 Application Lead Progress Note Subjective: Patient reporting his pain is relatively well controlled and that he will try to take pain meds prior to therapy. He is eager to go home, but wants to get the maximum benefit from inpatient therapy. He is still constipated. REVIEW OF SYSTEMS: The following is a completed review of systems and has been reviewed. Review of systems otherwise unremarkable. PAIN: Patient self reports left hip pain EYES: No recent vision changes EARS, NOSE, & THROAT: +sinus congestion (improving) CARDIOVASCULAR: Denies chest pain or palpitations PULMONARY: Denies shortness of breath GASTROINTESTINAL: + constipation GENITOURINARY: denies dysuria MUSCULOSKELETAL: LLE weakness NEUROLOGICAL:denies paresthesias HEMATOLOGICAL: denies easy bruising SKIN: left hip incision PSYCHIATRIC: Unremarkable All other review of systems found to be negative. PHYSICAL EXAMINATION: VITAL SIGNS: Please see below. GENERAL: Pleasant and cooperative. No acute distress. HEENT: PERRL. Extraocular movements intact. Clear conjunctiva CARDIOVASCULAR: Regular rate and rhythm. No murmurs, rubs, or gallops LUNGS: Clear to auscultation bilaterally. No wheezes. No rhonchi ABDOMEN: Soft, nontender, nondistended. Positive bowel sounds. Normal active bowel sounds NEUROLOGICAL: Alert and oriented times three. Cranial nerves II through XII grossly intact. Sensation grossly intact in all 4limbs EXTREMITIES: 5\5 strength bilateral upper extremities. 5\5 strength right lower extremity. 5/5 strength in left lower extremity ankle DF/EHL (limited due to recent surgery) SKIN: no sacral erythema, left hip incision c/d/i with scant sanguinous drainage ASSESSMENT:78-year-old M with past medical history of BPH who presents status post fall with left femur fracture PLAN: 1. Rehab- PT/OT advance gait and ADLs, strengthen/stretch/maintain ROM all 4limbs- ambulating with RW 2. Cardiac: hx of sinus bradycardia, patient reports being very active, monitor 3. Resp: patient current smoker with CXR showing pulmonary nodule, he follows with his PCP and receive annual screening -Duonebs prn -encourage incentive spirometry, and monitor for infection -c/u zyrtec, flonase, and nasal saline drops for sinus congestion 4. Ortho: s/p fall with left hip fracture and hemiarthroplasty, post-lat hip precautions, WBAT, ortho consulted 5. GI ppx: Protonix -lactulose and suppository ordered for constipation 6. DVT ppx: Xarelto and TEDs 7. Pain: Tylenol and oxycodone, ice 8. : hx of BPH c/u Proscar and Flomax, monitor PVRs 9. Heme: psot-op anemia due to blood loss, trend and consider transfusion if Hgb <8 10. Dispo:10/13/19 to home, progressing towards goals Allergies Coded Allergies: No Known Allergies (Unverified , 10/03/19) Vital Signs Vital Signs Date Time Temp Pulse Resp B/P (MAP) Pulse Ox O2 Delivery O2 Flow Rate FiO2 10/07/19 11:40 18 10/07/19 06:00 97.8 65 131/71 (91) 96 Room Air Laboratory Data CBC/BMP Laboratory Tests 10/07/19 06:57 Labs 24H Laboratory Tests 2 10/07/19 06:57: Immature Granulocyte % (Auto) 0.2, Neutrophils (%) (Auto) 62.0, Lymphocytes (%) (Auto) 23.9L, Monocytes (%) (Auto) 9.2H, Eosinophils (%) (Auto) 4.3H, Basophils (%) (Auto) 0.4, Neutrophils # (Auto) 3.2, Lymphocytes # (Auto) 1.2L, Monocytes # (Auto) 0.5, Eosinophils # (Auto) 0.2, Basophils # (Auto) 0.0, Nucleated Red Blood Cells % (auto) 0.0, Anion Gap 6L, Glomerular Filtration Rate > 60.0, Calcium Level 7.9L Current Medications Current Medications Current Medications Medications (Trade) Dose Ordered Sig/Nina Route PRN Reason Start Time Stop Time Status Last Admin Dose Admin Acetaminophen (Tylenol Tab) 1,000 mg Q8H PO 10/05/19 14:00 10/07/19 13:52 Bisacodyl (Dulcolax Suppository) 10 mg DAILYPRN PRN [place] CONSTIPATION 10/05/19 16:00 Cetirizine HCl (ZyrTEC) 10 mg QHS PO 10/06/19 21:00 10/06/19 20:27 Docusate Sodium (Colace) 100 mg BID PO 10/05/19 21:00 10/07/19 08:56 Finasteride (Proscar) 5 mg DAILY PO 10/06/19 09:00 10/07/19 08:56 Fluticasone Propionate (Flonase 0.05% Nasal [place]) 1 spray BID NARES 10/06/19 21:00 10/07/19 08:56 Magnesium Hydroxide (Milk Of Magnesia) 30 ml DAILYPRN PRN PO CONSTIPATION 10/05/19 16:00 Oxycodone HCl (Roxicodone, Oxyir) 5 mg Q4HP PRN PO PAIN 10/05/19 16:00 10/07/19 11:03 Rivaroxaban (Xarelto) 10 mg DAILY@1800 PO 10/05/19 18:00 10/06/19 17:36 Senna (Senokot) 1 tab QHS PO 10/05/19 21:00 10/06/19 20:27 Sodium Chloride ([place] Nasal [place]) 2 spray TID NA 10/06/19 21:00 10/07/19 08:56 Tamsulosin HCl (Flomax) 0.4 mg DAILY PO 10/06/19 09:00 10/07/19 08:56 TYLER HOROWITZ MD Oct 07, 2019 14:11
[2019-10-07] MEDS ORDERED: LACTULOSE 20 GM/30 ML SYRUP UD PO ONE (16:00)
[2019-10-07] MEDS: RIVAROXABAN 10 MG TAB (XARELTO) PO SCH (17:43)
[2019-10-07] MEDS ORDERED: BISACODYL 10 MG SUPP PR ONE (18:00)
[2019-10-07 20:00] VITALS: BP 109/61
[2019-10-07] MEDS: CETIRIZINE (ZyrTEC) 10 MG TAB PO SCH (20:24)
[2019-10-07] MEDS: SENNA 8.6 MG TAB (SENOKOT) PO SCH (20:24)
[2019-10-08] MEDS: oxyCODONE 5MG TAB PO PRN ×3 (04:06→22:04)
[2019-10-08 06:00] VITALS: BP 120/69
[2019-10-08] MEDS: ACETAMINOPHEN 500 MG TAB PO SCH ×3 (06:48→20:27)
[2019-10-08] MEDS: DOCUSATE SODIUM 100 MG CAP PO SCH ×2 (07:51→20:26)
[2019-10-08] MEDS: FINASTERIDE 5 MG TAB PO SCH (07:51)
[2019-10-08] MEDS: TAMSULOSIN 0.4 MG CAP PO SCH (07:51)
[2019-10-08] MEDS: FLUTICASONE PROP 0.05% NASAL SPRAY 16 GM (FLONASE) NARES SCH ×2 (07:51→20:27)
[2019-10-08] MEDS: SODIUM CHLORIDE NASAL 0.65% SPRAY BTL (OCEAN) SCH ×3 (07:52→20:27)
[2019-10-08] MEDS: REMEDY PHYTOPLEX Z-GUARD PASTE 113GM TUBE (FROM STOREROOM PRODUCT) TOP SCH ×3 (07:52→20:28)
[2019-10-08 14:00] VITALS: BP 116/58
--- NOTE | 2019-10-08 16:52 | IPNPDOC ---
PM&R Progress Note DATE OF SERVICE: Oct 08, 2019 Allergies Coded Allergies: No Known Allergies (Unverified , 10/03/19) Vital Signs Vital Signs Date Time Temp Pulse Resp B/P (MAP) Pulse Ox O2 Delivery O2 Flow Rate FiO2 10/08/19 14:00 97.0 67 19 116/58 (77) 97 Room Air Current Medications Current Medications Current Medications Medications (Trade) Dose Ordered Sig/Nina Route PRN Reason Start Time Stop Time Status Last Admin Dose Admin Acetaminophen (Tylenol Tab) 1,000 mg Q8H PO 10/05/19 14:00 10/08/19 13:33 Bisacodyl (Dulcolax Suppository) 10 mg DAILYPRN PRN [place] CONSTIPATION 10/05/19 16:00 Cetirizine HCl (ZyrTEC) 10 mg QHS PO 10/06/19 21:00 10/07/19 20:24 Docusate Sodium (Colace) 100 mg BID PO 10/05/19 21:00 10/08/19 07:51 Finasteride (Proscar) 5 mg DAILY PO 10/06/19 09:00 10/08/19 07:51 Fluticasone Propionate (Flonase 0.05% Nasal [place]) 1 spray BID NARES 10/06/19 21:00 10/08/19 07:51 Magnesium Hydroxide (Milk Of Magnesia) 30 ml DAILYPRN PRN PO CONSTIPATION 10/05/19 16:00 Oxycodone HCl (Roxicodone, Oxyir) 5 mg Q4HP PRN PO PAIN 10/05/19 16:00 10/08/19 04:06 Rivaroxaban (Xarelto) 10 mg DAILY@1800 PO 10/05/19 18:00 10/07/19 17:43 Senna (Senokot) 1 tab QHS PO 10/05/19 21:00 10/07/19 20:24 Sodium Chloride ([place] Nasal [place]) 2 spray TID NA 10/06/19 21:00 10/08/19 07:52 Tamsulosin HCl (Flomax) 0.4 mg DAILY PO 10/06/19 09:00 10/08/19 07:51 TYLER HOROWITZ MD Oct 08, 2019 16:52
[2019-10-08] MEDS: RIVAROXABAN 10 MG TAB (XARELTO) PO SCH (16:57)
[2019-10-08 20:00] VITALS: BP 114/57
[2019-10-08] MEDS: SENNA 8.6 MG TAB (SENOKOT) PO SCH (20:26)
[2019-10-08] MEDS: CETIRIZINE (ZyrTEC) 10 MG TAB PO SCH (20:27)
[2019-10-09 04:00] VITALS: BP 132/68
[2019-10-09] MEDS: oxyCODONE 5MG TAB PO PRN ×3 (04:43→21:06)
[2019-10-09] MEDS: ACETAMINOPHEN 500 MG TAB PO SCH ×3 (05:57→21:06)
[2019-10-09 07:07] LABS: BASO % 0.5 % (0.0-1.0); EOS # 0.2 10^3/uL (0.0-0.5); EOS % 5.7 % (0.0-3.0); HEMATOCRIT 29.2 % (42.0-52.0); HEMOGLOBIN 9.4 g/dl (13.5-17.5); LYMPH # 0.9 10^3/uL (1.5-5.0); LYMPH % 21.3 % (24.0-44.0); MEAN CORPUSCULAR HEMOGLOBIN 24.4 pg (27.0-33.0); MEAN CORPUSCULAR HGB CONC 32.2 g/dl (32.0-36.5); MEAN CORPUSCULAR VOLUME 75.8 fl (80.0-96.0); MONO # 0.5 10^3/uL (0.0-0.8); MONO % 11.1 % (0.0-5.0); NEUTROPHILS # 2.6 10^3/uL (1.5-8.5); NEUTROPHILS % 61.2 % (36.0-66.0); PLATELET COUNT, AUTOMATED 209 10^3/uL (150-450); RED BLOOD COUNT 3.85 10^6/uL (4.30-6.10); WHITE BLOOD COUNT 4.2 10^3/uL (4.0-10.0)
[2019-10-09 07:33] LABS: BLOOD UREA NITROGEN 22 MG/DL (7-18); CALCIUM LEVEL 8.3 MG/DL (8.8-10.2); CARBON DIOXIDE LEVEL 28 MEQ/L (21-32); CHLORIDE LEVEL 108 MEQ/L (98-107); CREATININE FOR GFR 0.91 MG/DL (0.70-1.30); GLOMERULAR FILTRATION RATE > 60.0 (>42); GLUCOSE, FASTING 92 MG/DL (70-100); POTASSIUM SERUM 4.2 MEQ/L (3.5-5.1); SODIUM LEVEL 142 MEQ/L (136-145)
[2019-10-09] MEDS: TAMSULOSIN 0.4 MG CAP PO SCH (07:52)
[2019-10-09] MEDS: DOCUSATE SODIUM 100 MG CAP PO SCH ×2 (07:52→21:05)
[2019-10-09] MEDS: FINASTERIDE 5 MG TAB PO SCH (07:53)
[2019-10-09] MEDS: REMEDY PHYTOPLEX Z-GUARD PASTE 113GM TUBE (FROM STOREROOM PRODUCT) TOP SCH ×3 (08:02→21:08)
[2019-10-09] MEDS: FLUTICASONE PROP 0.05% NASAL SPRAY 16 GM (FLONASE) NARES SCH ×2 (08:03→21:07)
[2019-10-09] MEDS: SODIUM CHLORIDE NASAL 0.65% SPRAY BTL (OCEAN) SCH ×3 (08:03→21:07)
[2019-10-09 14:00] VITALS: BP 124/58
--- NOTE | 2019-10-09 14:35 | IPN ---
DATE: 10/09/2019 CHIEF COMPLAINT: Postoperative day #6 left hip hemiarthroplasty. HISTORY OF PRESENT ILLNESS: This 78-year-old man is seen today on the rehabilitation [place]. He is completing his rehab. He is doing well. He plans to do another 1-1/2 hours throughout the day. PHYSICAL EXAMINATION: Vital signs stable. Dressing was changed. There was moderate strikethrough on the dressing. Artemas are in situ. No skin breakdown. No redness, swelling, or drainage. Normal sensation and motor function of the foot. ASSESSMENT/PLAN: This 78-year-old man post-op day #6 from left hip hemiarthroplasty. I have asked the nurse to change his dressing to another Optifoam occlusive dressing. Continue on his rehabilitation. I have no other concerns.
[2019-10-09] MEDS ORDERED: OXYC-517 PO (15:00)
[2019-10-09] MEDS ORDERED: FLOM0.4C39 PO (15:00)
[2019-10-09] MEDS ORDERED: XARE10TA PO (15:00)
[2019-10-09] MEDS ORDERED: FINA5TAB2 PO (15:00)
--- NOTE | 2019-10-09 15:03 | IPNPDOC ---
PM&R Progress Note Vascular Technologist Sonographer Progress Note doppler DATE OF ADMISSION: Oct 05, 2019 at 16:00 INPATIENT REHABILITATION ADMISSION DAY: # SUBJECTIVE: Patient is a -year-old with . ALLERGIES: See Below MEDICATIONS: Reviewed, see below. OBJECTIVE: VITAL SIGNS: Please see below. PHYSICAL EXAMINATION: GENERAL: [Cachectic, well developed, sitting up in bed, no acute distress]. HEENT: [Normocephalic, atraumatic]. [No facial droop]. [Poor dentition, missing teeth. PERRL, EOMI]. CARDIOVASCULAR: [S1, S2, irregular rate]. [No lower limb edema or calf tenderness]. LUNGS: [Decreased breath sounds, coarse throughout]. ABDOMEN: [Soft, nontender, nondistended. Normoactive bowel sounds throughout]. MUSCULOSKELETAL: MMT: /5 strength proximally bilateral shoulder abduction, forward flexion and bilateral hip flexion. /5 strength bilateral elbow flexion, knee flexion, /5 bilateral elbow extension and knee extension. /5 wool dyer, dorsiflexion, plantar flexion. NEUROLOGICAL: [Alert and oriented times three]. [Answers all question appropriately]. SKIN: . LABORATORY DATA: Reviewed. Please see below. MICROBIOLOGY: Please see below. IMAGING: ASSESSMENT AND PLAN: 1. . 2. . 3. . TIME SPENT: Chart Review, examination and documentation minutes. Allergies Coded Allergies: No Known Allergies (Unverified , 10/03/19) Vital Signs Vital Signs Date Time Temp Pulse Resp B/P (MAP) Pulse Ox O2 Delivery O2 Flow Rate FiO2 10/09/19 14:00 97.7 61 18 124/58 (80) 97 Room Air Laboratory Data CBC/BMP Laboratory Tests 10/09/19 06:15 Labs 24H Laboratory Tests 2 10/09/19 06:15: Immature Granulocyte % (Auto) 0.2, Neutrophils (%) (Auto) 61.2, Lymphocytes (%) (Auto) 21.3L, Monocytes (%) (Auto) 11.1H, Eosinophils (%) (Auto) 5.7H, Basophils (%) (Auto) 0.5, Neutrophils # (Auto) 2.6, Lymphocytes # (Auto) 0.9L, Monocytes # (Auto) 0.5, Eosinophils # (Auto) 0.2, Basophils # (Auto) 0.0, Nucleated Red Blood Cells % (auto) 0.0, Anion Gap 6L, Glomerular Filtration Rate > 60.0, Calcium Level 8.3L Current Medications Current Medications Current Medications Medications (Trade) Dose Ordered Sig/Nina Route PRN Reason Start Time Stop Time Status Last Admin Dose Admin Acetaminophen (Tylenol Tab) 1,000 mg Q8H PO 10/05/19 14:00 10/09/19 07:53 Bisacodyl (Dulcolax Suppository) 10 mg DAILYPRN PRN [place] CONSTIPATION 10/05/19 16:00 Cetirizine HCl (ZyrTEC) 10 mg QHS PO 10/06/19 21:00 10/08/19 20:27 Docusate Sodium (Colace) 100 mg BID PO 10/05/19 21:00 10/09/19 07:52 Finasteride (Proscar) 5 mg DAILY PO 10/06/19 09:00 10/09/19 07:53 Fluticasone Propionate (Flonase 0.05% Nasal [place]) 1 spray BID NARES 10/06/19 21:00 10/09/19 08:03 Magnesium Hydroxide (Milk Of Magnesia) 30 ml DAILYPRN PRN PO CONSTIPATION 10/05/19 16:00 Oxycodone HCl (Roxicodone, Oxyir) 5 mg Q4HP PRN PO PAIN 10/05/19 16:00 10/09/19 04:43 Rivaroxaban (Xarelto) 10 mg DAILY@1800 PO 10/05/19 18:00 10/08/19 16:57 Senna (Senokot) 1 tab QHS PO 10/05/19 21:00 10/08/19 20:26 Sodium Chloride ([place] Nasal [place]) 2 spray TID NA 10/06/19 21:00 10/09/19 08:03 Tamsulosin HCl (Flomax) 0.4 mg DAILY PO 10/06/19 09:00 10/09/19 07:52 TYLER HOROWITZ MD Oct 09, 2019 15:03
--- NOTE | 2019-10-09 17:00 | REP ---
Bilateral lower extremity Duplex Doppler venous ultrasound: Real time compression and duplex Doppler interrogation of the bilateral lower extremity deep venous system is performed. Bilaterally, the common femoral, superficial femoral and popliteal veins are fully compressible with transducer pressure and demonstrate normal spontaneous and phasic flow, without evidence of deep venous thrombosis. Impression: No evidence of deep venous thrombosis of the bilateral lower extremity femoral popliteal venous system. Electronically Signed by José Miguel Sow MD 10/09/2019 04:52 P
[2019-10-09] MEDS: RIVAROXABAN 10 MG TAB (XARELTO) PO SCH (18:23)
[2019-10-09 20:55] VITALS: BP 128/60
[2019-10-09] MEDS: SENNA 8.6 MG TAB (SENOKOT) PO SCH (21:05)
[2019-10-09] MEDS: CETIRIZINE (ZyrTEC) 10 MG TAB PO SCH (21:06)
[2019-10-10 06:30] VITALS: BP 141/76
[2019-10-10] MEDS: ACETAMINOPHEN 500 MG TAB PO SCH ×3 (06:36→20:45)
[2019-10-10] MEDS: FINASTERIDE 5 MG TAB PO SCH (07:41)
[2019-10-10] MEDS: TAMSULOSIN 0.4 MG CAP PO SCH (07:41)
[2019-10-10] MEDS: REMEDY PHYTOPLEX Z-GUARD PASTE 113GM TUBE (FROM STOREROOM PRODUCT) TOP SCH ×3 (07:42→20:49)
[2019-10-10] MEDS: FLUTICASONE PROP 0.05% NASAL SPRAY 16 GM (FLONASE) NARES SCH ×2 (07:42→20:49)
[2019-10-10] MEDS: SODIUM CHLORIDE NASAL 0.65% SPRAY BTL (OCEAN) SCH ×3 (07:42→20:49)
[2019-10-10] MEDS: DOCUSATE SODIUM 100 MG CAP PO SCH ×3 (07:43→20:50)
[2019-10-10 13:51] VITALS: BP 130/71
[2019-10-10] MEDS: RIVAROXABAN 10 MG TAB (XARELTO) PO SCH (17:14)
[2019-10-10] MEDS: SENNA 8.6 MG TAB (SENOKOT) PO SCH ×2 (20:45→20:50)
[2019-10-10] MEDS: CETIRIZINE (ZyrTEC) 10 MG TAB PO SCH (20:45)
[2019-10-10] MEDS: oxyCODONE 5MG TAB PO PRN (20:45)
[2019-10-10 21:00] VITALS: BP 117/61
[2019-10-11 05:46] VITALS: BP 145/71
[2019-10-11] MEDS: ACETAMINOPHEN 500 MG TAB PO SCH ×2 (05:46→13:05)
[2019-10-11] MEDS: DOCUSATE SODIUM 100 MG CAP PO SCH (08:04)
[2019-10-11] MEDS: FLUTICASONE PROP 0.05% NASAL SPRAY 16 GM (FLONASE) NARES SCH (08:05)
[2019-10-11] MEDS: REMEDY PHYTOPLEX Z-GUARD PASTE 113GM TUBE (FROM STOREROOM PRODUCT) TOP SCH (08:05)
[2019-10-11] MEDS: SODIUM CHLORIDE NASAL 0.65% SPRAY BTL (OCEAN) SCH (08:05)
[2019-10-11] MEDS: TAMSULOSIN 0.4 MG CAP PO SCH (08:07)
[2019-10-11] MEDS: FINASTERIDE 5 MG TAB PO SCH (08:07)
== END 2019-10-11 13:25 | disposition home or self-care (01) | DRG 561 ==
LOC: M PM&R 16:00
PROVIDERS: ADMIT Physical Medicine & Rehabilitation; ATTEND Physical Medicine & Rehabilitation
DX: S72.002D Fracture of unspecified part of neck of left femur, subsequent encounter for closed fracture with routine healing (principal); F17.200 Nicotine dependence, unspecified, uncomplicated; R00.1 Bradycardia, unspecified; D50.0 Iron deficiency anemia secondary to blood loss (chronic); K59.00 Constipation, unspecified; M62.81 Muscle weakness (generalized); R26.89 Other abnormalities of gait and mobility; R09.81 Nasal congestion; R91.1 Solitary pulmonary nodule; Z74.09 Other reduced mobility; Z79.01 Long term (current) use of anticoagulants; Z79.899 Other long term (current) drug therapy; Z96.642 Presence of left artificial hip joint